=== PATIENT | female | born 1980 | race Caucasian/White ===

== ENCOUNTER 2020-12-08 14:44 | Emergency (ER) | payer OTHER ==
[~2020-12-08] VITALS: Ht 160 cm; Wt 113.4 kg
[~2020-12-08 14:44] MED LIST: AMITRIPTYLINE H25 M2 PO; AMITRIPTYLINE H25 M3 PO; AMITRIPTYLINE H25 M4 PO; BENADRYL25 MG PO; BYDUREON2 MG SQ; CLARITIN10 M3 PO; CLONAZEPAM 0.50.5 M1 PO; ENDOCET 10-3251 EACH PO; FENOFIBRATE160 MG PO; FISH OIL 1,2001 EAC3 PO; FLEXERIL PO; GARLIC1000 MG PO; GIANVI 3 MG-0.1 EACH PO; GLUCOPHAGE XR500 MG PO; GLUCOPHAGE1000 MG PO; HUMALOG100 UNIT/1 SUBQ; INVOKANA100 MG PO; LIORESAL 10 MG10 MG PO; LIPITOR20 MG PO; LYRICA 75 MG CA75 MG PO; LYRICA100 MG PO; MEDROLDOSEPACK PO; MELATONIN3 MG PO; MILK THISTLE500 MG PO; MULTIPLE VITAM1 EAC4 PO; NECON1 EAC4 PO; NORTREL1 EAC1 PO; NORTRIPTYLINE H10 M1 PO; NORTRIPTYLINE H25 M3 PO; NOVOLOG100 UNIT/1 SUBQ; OMEPRAZOLE40 MG PO; PANTOPRAZOLE SO40 MG PO; PERCOCET 10-321 EACH PO; POTASSIUM99 M1 PO; PRAZOSIN HCL2 MG PO; PROPRANOLOL 1010 M1 PO; PROPRANOLOL 20M20 MG PO; PROZAC20 MG PO; TURMERIC500 MG PO; VICTOZA0.6 MG/0.1 SUBQ; VITAMIN D312.5 MCG/5 PO; VOLTAREN GEL 1100 G2 TOP; WELLBUTRIN 75 M75 M1 PO; ZYRTEC10 MG PO
[2020-12-08] MEDS ORDERED: LANTUS SUBQ (15:07)
[2020-12-08] MEDS ORDERED: VENTOLIN HFA INH8 GM INH (15:08)
[2020-12-08] MEDS ORDERED: SYMBICORT160 MCG/4. INH (15:09)
[2020-12-08] MEDS ORDERED: DIPHENHIST50 MG PO (15:12)
[2020-12-08] MEDS ORDERED: JANUMET 50-1,01 EACH PO (15:13)
[2020-12-08 15:51] LABS: HEMATOCRIT 41.5 % (37.0-47.0); HEMOGLOBIN 13.5 gm/dL (12.0-15.0); MCH 26.9 pg (26.0-34.0); MCHC 32.7 g/dL (28.0-37.0); MCV 82.5 fL (80.0-100.0); MPV 7.4 fl. (7.2-11.1); NUCLEATED RBCS 0 /100WBC; PLATELET COUNT* 234 thou/uL (150-400); RBC 5.03 mil/uL (4.20-5.00); RDW-CV 14.2 % (10.5-14.5); WBC 8.4 thou/uL (4.0-11.0)
[2020-12-08 16:01] LABS: CALCIUM 8.6 mg/dL (8.5-10.1); CREATININE 0.6 mg/dL (0.6-1.3)
[2020-12-08 16:05] LABS: ALBUMIN 3.5 g/dL (3.4-5.0); TOTAL BILIRUBIN 0.8 mg/dL (<0.1-1.0); TOTAL PROTEIN 7.5 g/dL (6.4-8.2)
[2020-12-08 16:38] LABS: ABSOLUTE LYMPHOCYTES 0.4 thou/uL (0.8-5.3); ABSOLUTE MONOCYTES 0.2 thou/uL (0.0-1.2); ABSOLUTE NEUTROPHILS 7.8 thou/uL (1.6-8.1); ATYPICAL LYMPHS 1 %
[2020-12-08 16:39] LABS: PLATELET ESTIMATE ADEQUATE
[2020-12-08 16:42] LABS: URINE BILIRUBIN NEGATIVE (Negative); URINE BLOOD NEGATIVE (Negative); URINE CLARITY CLEAR; URINE COLOR YELLOW; URINE GLUCOSE-RANDOM 3+ (Negative); URINE KETONES 2+ (Negative); URINE LEUKOCYTES-REFLEX TRACE (Negative); URINE NITRITE-REFLEX NEGATIVE (Negative); URINE PROTEIN NEGATIVE (Negative); URINE SPECIFIC GRAVITY 1.025 (1.005-1.030); URINE UROBILINOGEN 0.2 E.U./dl (0.2-1.0)
[2020-12-08 16:56] LABS: SQUAMOUS >10 Many /LPF (0-3)
[2020-12-08 16:57] LABS: CASTS None Seen /LPF (None Seen); CRYSTALS None Seen /LPF (None Seen); URINE RBC None Seen /HPF (0-2); URINE WBC-REFLEX 0-5 Rare /HPF (0-5)
[2020-12-08] MEDS ORDERED: ONDANSETRON ODT4 MG PO (17:45)
[2020-12-08 18:06] VITALS: BP 141/65
--- NOTE | 2020-12-10 09:38 | EKG ---
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: [facility] : 1980 Requested By: Modesto Mckinney Order Number: [id number] MD: Shivam Smith Measurements Intervals [place] Rate: 102 P: 29 VT: 152 QRS: -1 QRSD: 84 T: 38 QT: 356 QTc: 464 Interpretive Statements Sinus tachycardia No previous ECG available for comparison Electronically Signed On 12-10-2020 9:38:19 CDT by Shivam Smith [email or web address] <ELECTRONICALLY SIGNED> By: Shivam Smith MD, [facility] 12/10/2038 1529 1529 Shivam Smith MD, FACC /EPI
== END 2020-12-08 18:07 | disposition home or self-care (01) ==
LOC: M.ERS 14:44
PROVIDERS: Physician Assistant
DX: R11.2 Nausea with vomiting, unspecified (principal); R10.84 Generalized abdominal pain; E11.9 Type 2 diabetes mellitus without complications; J45.909 Unspecified asthma, uncomplicated; E78.00 Pure hypercholesterolemia, unspecified; G43.909 Migraine, unspecified, not intractable, without status migrainosus; K21.9 Gastro-esophageal reflux disease without esophagitis; Z88.0 Allergy status to penicillin; Z88.2 Allergy status to sulfonamides; Z88.6 Allergy status to analgesic agent; Z88.7 Allergy status to serum and vaccine

== ENCOUNTER 2020-12-08 21:25 | Observation (INO) | payer OTHER ==
[~2020-12-08] VITALS: Ht 162.6 cm; Wt 116.6 kg
[~2020-12-08 21:25] MED LIST changes: +DIPHENHIST50 MG PO; +JANUMET 50-1,01 EACH PO; +LANTUS SUBQ; +ONDANSETRON ODT4 MG PO; +SYMBICORT160 MCG/4. INH; +VENTOLIN HFA INH8 GM INH
[2020-12-08 21:43] VITALS: BP 145/95
[2020-12-08 22:08] LABS: HEMATOCRIT 44.3 % (37.0-47.0); HEMOGLOBIN 14.6 gm/dL (12.0-15.0); MCH 27.3 pg (26.0-34.0); MCHC 33.1 g/dL (28.0-37.0); MCV 82.5 fL (80.0-100.0); MPV 7.6 fl. (7.2-11.1); NUCLEATED RBCS 0 /100WBC; PLATELET COUNT* 287 thou/uL (150-400); RBC 5.36 mil/uL (4.20-5.00); RDW-CV 14.4 % (10.5-14.5); WBC 9.9 thou/uL (4.0-11.0)
[2020-12-08 22:13] LABS: CALCIUM 9.3 mg/dL (8.5-10.1); CREATININE 0.6 mg/dL (0.6-1.3); POTASSIUM 4.8 mmol/L (3.5-5.1)
[2020-12-08 22:28] LABS: ABSOLUTE LYMPHOCYTES 0.5 thou/uL (0.8-5.3); ABSOLUTE NEUTROPHILS 9.4 thou/uL (1.6-8.1); PLATELET ESTIMATE ADEQUATE
[2020-12-08 23:14] LABS: URINE BLOOD NEGATIVE (Negative); URINE CLARITY CLEAR; URINE COLOR YELLOW; URINE GLUCOSE-RANDOM 2+ (Negative); URINE LEUKOCYTES-REFLEX NEGATIVE (Negative); URINE NITRITE-REFLEX NEGATIVE (Negative); URINE PROTEIN NEGATIVE (Negative); URINE SPECIFIC GRAVITY 1.015 (1.005-1.030); URINE UROBILINOGEN 0.2 E.U./dl (0.2-1.0)
[2020-12-08 23:15] LABS: URINE BILIRUBIN 1+ (Negative); URINE KETONES 3+ (Negative)
[2020-12-08 23:17] LABS: ICTOTEST (BILI CONFIRMATORY) Negative (Negative)
[2020-12-08 23:18] LABS: ACETEST (KETONE CONFIRMATORY) Moderate (Negative)
[2020-12-08 23:49] VITALS: BP 105/76
--- NOTE | 2020-12-09 00:05 | NUR ---
PT ADMITTED TO FLOOR PER CART ACCOMPANIED BY ER STAFF WITH BELONGINGS. WALKS FROM CART TO BED WITH STEADY GAIT. AOX4, PLEASANT. DENIES PAIN AT PRESENT BUT CO NAUSEA, MEDS TO BE GIVEN. IV PLACED ON PUMP FOR INFUSION. ADMIT HISTORY AND ASSESSMENT PERFORMED, SEE ADMIT NOTES. CALL LITE IN EASY REACH. WILL CONTINUE TO MONITOR AND PROVIDE CARES NEEDED.
--- NOTE | 2020-12-09 05:29 | NUR ---
PT HAS SLEPT FAIRLY WELL SINCE RECEIVING ZOFRAN AFTER ADMIT TO FLOOR IVF INFUSING PER PUMP. PT UP WITH STEADY GAIT TO BR TO VOID. NO EMESIS. METFORMIN ON HOLD DUE TO CT RECEIVED IN ER. AOX4, PLEASANT. ABLE TO USE CALL LITE AND MAKE NEEDS KNOWN.
[2020-12-09 08:15] VITALS: BP 138/72
[2020-12-09 11:50] LABS: AMP/METHAMP Negative (Negative); BARBITURATES Negative (Negative); BENZODIAZEPINES Negative (Negative); COCAINE Negative (Negative); METHADONE Negative (Negative); OPIATES POSITIVE (Negative); PCP Negative (Negative); THC Negative (Negative)
[2020-12-09 16:30] VITALS: BP 133/70
--- NOTE | 2020-12-09 17:19 | NUR ---
PATIENT HAS REMAINED A&OX4, PLEASANT AND COOPERATIVE WITH CARES THIS SHIFT. MEDICATIONS AND IV FLUIDS ADMINISTERED ORDERED. PATIENT ADVANCED TO REGULAR DIET AND HAS SO FAR TOLERATED SODA AND SALTINE CRACKERS WITHOUT C/O N/V. PATIENT UP AD J LUIS IN ROOM. CALL LIGHT WITHIN REACH.
[2020-12-09 20:14] VITALS: BP 136/70
[2020-12-10 04:34] LABS: CALCIUM 8.4 mg/dL (8.5-10.1); CREATININE 0.4 mg/dL (0.6-1.3); POTASSIUM 3.7 mmol/L (3.5-5.1)
--- NOTE | 2020-12-10 05:17 | NUR ---
PT SLEPT WELL OVERNIGHT AFTER RECEIVING HS PAIN AND SLEEP MEDS. UP AD J LUIS IN ROOM. IVF INFUSING PER PUMP. PT STATES SHE IS PASSING GAS, NO BM. INSULIN GIVEN ORDERED AT HS WITH SNACK. ABLE TO USE CALL LITE AND MAKE NEEDS KNOWN.
[2020-12-10 06:48] LABS: ABSOLUTE LYMPHOCYTES 1.3 thou/uL (0.8-5.3); ABSOLUTE MONOCYTES 0.3 thou/uL (0.0-1.2); ABSOLUTE NEUTROPHILS 1.8 thou/uL (1.6-8.1); BASOPHILS 0.6 %; EOSINOPHILS 1.3 %; HEMATOCRIT 39.2 % (37.0-47.0); HEMOGLOBIN 12.8 gm/dL (12.0-15.0); LYMPHOCYTES 37.8 %; MCH 27.2 pg (26.0-34.0); MCHC 32.7 g/dL (28.0-37.0); MCV 83.2 fL (80.0-100.0); MONOCYTES 9.5 %; MPV 7.3 fl. (7.2-11.1); NUCLEATED RBCS 0 /100WBC; POLYS 50.8 %; RBC 4.71 mil/uL (4.20-5.00); RDW-CV 14.2 % (10.5-14.5); WBC 3.5 thou/uL (4.0-11.0)
[2020-12-10 06:50] LABS: PLATELET COUNT* 204 thou/uL (150-400)
[2020-12-10 07:07] LABS: WBC ND thou/uL (4.0-11.0)
[2020-12-10 07:08] LABS: HEMATOCRIT ND % (37.0-47.0); HEMOGLOBIN ND gm/dL (12.0-15.0); RBC ND mil/uL (4.20-5.00)
[2020-12-10 07:09] LABS: MCH ND pg (26.0-34.0); MCHC ND g/dL (28.0-37.0); MCV ND fL (80.0-100.0)
[2020-12-10 07:10] LABS: PLATELET COUNT* ND thou/uL (150-400); RDW-CV ND % (10.5-14.5)
[2020-12-10 07:11] LABS: MPV ND fl. (7.2-11.1); NUCLEATED RBCS ND /100WBC
[2020-12-10 08:00] VITALS: BP 134/70
[2020-12-10 10:57] VITALS: BP 134/70
--- NOTE | 2020-12-10 11:30 | NUR ---
PT A&OX4 VSS. PT UP AD J LUIS, PT AMBULATES ON UNIT WITH MASK ON PER PROTOCOL. PT UP TO SHOWER THIS AM. SCHEDULED PAIN MEDICATION ADMINISTERED ORDERED. PT RESTS IN ROOM WAITING FOR SISTER TO ARRIVE AND TAKE HER HOME. IV TO RFA DC'D PRIOR TO PT LKEAVING UNIT. PT LEFT UNIT IN WC TRANSPORTED BY NURSING STAFF. PT STATES UNDERSTANDING OF DC INSTRUCTIONS AND F/U INFORMATION PROVIDED.
--- NOTE | 2020-12-11 11:30 | NUR ---
Nutrition: Pt discharged before I was able to see her. Called her today at [phone]. Consult was received for "diet instructions." Pt stated she does a low CHO/sugar diet. She didn't have any questions about her home diet. She said she was feeling well and denied need for nutrition consult. Encouraged her to call back if anything changes.
== END 2020-12-10 11:30 | disposition home or self-care (01) ==
LOC: M.ERS 21:25 → M.ORTHSURG 22:57 → M.TBA-ER 22:57 → M.ORTHSURG 12-09 00:06
PROVIDERS: Emergency Medicine; Internal Medicine; ADMIT Family Medicine; ATTEND Family Medicine
DX: K52.9 Noninfective gastroenteritis and colitis, unspecified (principal); K56.7 Ileus, unspecified; E87.1 Hypo-osmolality and hyponatremia; Z20.822 Contact with and (suspected) exposure to COVID-19; E11.9 Type 2 diabetes mellitus without complications; J45.909 Unspecified asthma, uncomplicated; E78.00 Pure hypercholesterolemia, unspecified; G43.909 Migraine, unspecified, not intractable, without status migrainosus; K21.9 Gastro-esophageal reflux disease without esophagitis; M79.7 Fibromyalgia; E66.01 Morbid (severe) obesity due to excess calories; G89.29 Other chronic pain; Z79.899 Other long term (current) drug therapy; Z68.41 Body mass index [BMI] 40.0-44.9, adult; Z88.0 Allergy status to penicillin; Z79.4 Long term (current) use of insulin; Z88.2 Allergy status to sulfonamides; Z88.8 Allergy status to other drugs, medicaments and biological substances; Z88.6 Allergy status to analgesic agent; Z88.7 Allergy status to serum and vaccine